=== PATIENT | female | born 1960 | race Caucasian/White ===

== ENCOUNTER 2016-03-30 13:55 | Day surgery (SDC) | END 2016-03-30 18:07 | disposition home or self-care (01) | DX: Z12.11 Encounter for screening for malignant neoplasm of colon (principal); K64.8 Other hemorrhoids; K29.50 Unspecified chronic gastritis without bleeding; B96.89 Other specified bacterial agents as the cause of diseases classified elsewhere; K21.9 Gastro-esophageal reflux disease without esophagitis | CPT/HCPCS: 43239; 45378; 88305; 88312; Z7610 ==